=== PATIENT | male | born 1995 | race Caucasian/White ===

== ENCOUNTER 2016-07-28 09:15 | Emergency (ER) | payer OTHER ==
[~2016-07-28] VITALS: Ht 175.3 cm; Wt 67.7 kg
[2016-07-28 11:48] LABS: EOSINOPHIL (%) 1.7 % (0-5); EOSINOPHIL COUNT 0.1 K/uL (0-0.3); HEMATOCRIT 47.2 % (38.0-50.0); IMMATURE GRANULOCYTE (%) 0.4 % (0.0-0.7); LYMPHOCYTE COUNT 2.3 K/uL (1.0-2.8); MCHC 34.5 G/DL (30.0-36.0); MCV 89.7 FL (86-99); MEAN PLAT.VOLUME 10.1 uM^3 (9.0-12.4); MONOCYTE (%) 8.3 % (3-12); MONOCYTE COUNT 0.7 K/uL (0-0.8); NEUTROPHIL (%) 60.8 % (45-76); PLATELET COUNT 191 K/uL (156-360); RBC DIS.WIDTH-CV 11.6 % (11.8-14.6); RBC DIS.WIDTH-SD 37.9 % (39-53); RED BLOOD COUNT 5.26 M/uL (4.00-5.50); WHITE BLOOD COUNT 8.2 K/uL (4.1-10.2)
[2016-07-28 11:56] LABS: CHLORIDE 108 mEq/L (99-109); SODIUM 143 mEq/L (136-147)
[2016-07-28 11:58] LABS: GLUCOSE 82 mg/dL (70-99)
[2016-07-28 11:59] LABS: ANION GAP 12 MEQ/L (2-14)
[2016-07-28 12:01] LABS: GFR ESTIMATE (CALCULATED) > 59 mL/min/; SERUM ETHYL ALCOHOL < 10 mg/dL
[2016-07-28 12:02] LABS: UREA NITROGEN (BUN) 12 mg/dL (9-23)
[2016-07-28] MEDS ORDERED: RISPERDAL0.5 MG PO (12:04)
[2016-07-28 12:18] VITALS: BP 141/81
== END 2016-07-28 12:19 | disposition home or self-care (01) ==
LOC: EME 09:15
PROVIDERS: Emergency Medicine
DX: F20.81 Schizophreniform disorder (principal); F17.200 Nicotine dependence, unspecified, uncomplicated
CPT/HCPCS: 80048; 85025; 90839; 99281; 99284; G0480